=== PATIENT | female | born 1970 | race Hispanic/Latino ===

== ENCOUNTER 2024-02-28 17:00 | Emergency (ER) | payer BC ==
[2024-02-28] MEDS ORDERED: ONDANSETRON 4 MG/2 ML VIAL ONE (18:34)
[2024-02-28] MEDS ORDERED: NA CHLORIDE 0.9% 1,000 ML ONE (18:34)
[2024-02-28 18:38] LABS: Absolute Lymphocytes (CBC) 1.6 K/uL (0.7-4.9); Absolute Monocytes 0.3 K/uL (0.1-1.3); Absolute Neutrophil 3.4 K/uL (1.8-8.0); Basophils % 0.2 % (0-1.3); Eosinophils % 0.9 % (0-4.4); Hematocrit 44.2 % (36.0-45.0); Hemoglobin 14.7 g/dL (12.0-15.0); MCH 31.1 pg (27.0-35.0); MCHC 33.3 g/dL (32.0-36.0); MCV 93.3 fL (80-100); MPV 8.5 fL (7.6-11.3); Monocytes % 5.3 % (3.3-12.3); Neutrophils % 63.6 % (41.7-73.7); Platelets 291 thou/uL (152-406); RBC Red Blood Cell Count 4.74 M/uL (3.86-4.86); Red Cell Distribution Width 13.1 % (12.1-15.2)
[2024-02-28 19:45] LABS: Albumin 3.4 g/dL (3.4-5.0); Anion Gap 8.2 mEq/L (5.0-15.0); Bilirubin Total 0.5 mg/dL (0.2-1.0); Globulin 3.5 g/dL (2.3-3.5); Potassium 3.2 mEq/L (3.5-5.1); Protein, Total 6.9 g/dL (6.4-8.2)
[2024-02-28] MEDS ORDERED: FAMOTIDINE 20 MG/2 ML VIAL IV ONE (20:23)
--- NOTE | 2024-02-28 21:58 | RAD REPORT ---
EXAM DESCRIPTION: CTAbdomen Pelvis W Contrast - 02/28/2024 9:36 pm CLINICAL HISTORY: LOWER GI BLEED COMPARISON: No comparisons TECHNIQUE: CT of the abdomen and pelvis was performed. All CT scans are performed using dose optimization technique as appropriate and may include automated exposure control or mA/KV adjustment according to patient size. FINDINGS: Lower chest: Small hiatal hernia. Bilateral breast prostheses Liver: Low-density lesion right hepatic lobe in the dome has benign imaging features. Lesion at the i nferior right hepatic lobe is also likely benign. Biliary: Cholecystectomy. Mild extrahepatic biliary duct dilatation probably due to the postcholecyst ectomy state. Stomach: No significant focal abnormality. Duodenum: No significant focal abnormality. Pancreas: No significant abnormality. Spleen: No significant abnormality. Adrenal: No suspicious lesions. Kidney/ureter: No hydronephrosis. No renal calculi. 2.2 cm cystic structure along the upper pole the left kidney which is separate from the kidney. This likely represents a proteinaceous benign cyst. Retroperitoneum: No retroperitoneal adenopathy. Vascular: No aneurysm. Bowel: Normal appendix.. Peritoneum: No ascites or free air.Small fat containing umbilical hernia. Bladder: Grossly unremarkable. Reproductive: Hysterectomy. Bones: No acute fracture. Other: n/a IMPRESSION: No acute intra-abdominal or pelvic finding. No source of gastrointestinal bleeding ident ified. Incidental findings as noted above.
[2024-02-28 23:51] LABS: Hematocrit 38.7 % (36.0-45.0); Hemoglobin 13.2 g/dL (12.0-15.0); MCH 31.4 pg (27.0-35.0); MCV 92.3 fL (80-100); MPV 8.7 fL (7.6-11.3); Platelets 253 thou/uL (152-406); RBC Red Blood Cell Count 4.19 M/uL (3.86-4.86); Red Cell Distribution Width 12.8 % (12.1-15.2)
--- NOTE | 2024-02-29 00:21 | EDPHYS ---
Physician Documentation [facility] Name: Shana Guerra Age: 54 yrs Sex: Female : 1970 Arrival Date: 02/28/2024 Time: 17:00 Bed 15 Private MD: ED Physician Thanh Kenyon HPI: 02/27 17:16 This 54 yrs old Female presents to ER via Ambulatory with complaints of Rectal sb4 Bleeding. 17:16 The patient presents to the emergency department with bleeding from the rectum/anus, sb4 that is moderate. Onset: The symptoms/episode began/occurred 3 hour(s) ago. Context: the patient has a known history of hemorrhoids. Modifying factors: The symptoms are alleviated by nothing, The symptoms are aggravated by nothing. Associate signs and symptoms: Pertinent positives: abdominal pain in the left lower quadrant, nausea. The patient has experienced similar episodes in the past, a few times, but today's symptoms are worse. rectal bleeding began suddenly this afternoon, hasn't stopped. has history of internal hemorrhoids but can usually get them to stop bleeding with pressure. denies any BMs today that provoked this. she is not on blood thinners. does report history of duodenal ulcers. states blood is bright red. reports history of diverticulosis. 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 - Infectious Disease History:: Denies. - Social history:: Smoking status: Patient denies any tobacco usage or history of. ROS: 17:16 Constitutional: Negative for fever, chills, and weight loss, sb4 17:16 Abdomen/GI: Positive for abdominal pain, nausea, abdominal cramps, rectal bleeding, 17:16 All other systems are negative, Exam: 17:16 Constitutional: This is a well developed, well nourished patient who is awake, alert, sb4 and in no acute distress. Head/Face: Normocephalic, atraumatic. Eyes: Extra-ocular motions intact. Periorbital areas with no swelling, redness, or edema. ENT: Mucous membranes moist. Cardiovascular: Regular rate and rhythm with a normal S1 and S2. Respiratory: Lungs have equal breath sounds bilaterally, clear to auscultation and percussion. No rales, rhonchi or wheezes noted. No increased work of breathing, no retractions or nasal flaring. Abdomen/GI: Soft, non-tender, no distension. Skin: Warm, dry with normal turgor. Normal color with no rashes, no lesions, and no evidence of cellulitis. MS/ Extremity: Pulses equal, no cyanosis. Neurovascular intact. Full, normal range of motion. Neuro: Awake and alert, GCS 15, oriented to person, place, time, and situation. Motor strength 5/5 in all extremities. Sensory grossly intact. 20:18 Abdomen/GI: Rectal exam: is unremarkable, rectal tone normal, Stool: normal, sb4 hemorrhoid(s), external, internal, with associated bleeding, tenderness, Vital Signs: 17:08 BP 151 / 103; Pulse 107; Resp 16; Temp 98.1; Pulse Ox 100% ; Weight 65.77 kg; Height 5 bp ft. 0 in. ; 19:00 BP 128 / 83; Pulse 67; Resp 16; Pulse Ox 100% on R/A; pf1 20:00 BP 126 / 80; Pulse 89; Resp 16; Pulse Ox 100% on R/A; pf1 21:00 BP 126 / 87; Pulse 87; Resp 16; Pulse Ox 100% on R/A; Pain 5/10; pf1 22:00 BP 118 / 80; Pulse 77; Resp 16; Pulse Ox 100% on R/A; Pain 5/10; pf1 23:00 BP 113 / 78; Pulse 84; Resp 16; Pulse Ox 98% on R/A; Pain 5/10; pf1 02/28 00:00 BP 106 / 72; Pulse 85; Resp 16; Pulse Ox 100% on R/A; Pain 4/10; pf1 01:00 BP 115 / 81; Pulse 83; Resp 16; Pulse Ox 99% on R/A; Pain 5/10; pf1 02:00 BP 126 / 87; Pulse 76; Resp 16; Pulse Ox 97% on R/A; Pain 2/10; pf1 03:00 BP 111 / 73; Pulse 73; Resp 16; Temp 98; Pulse Ox 99% on R/A; Pain 2/10; pf1 04:00 BP 111 / 75; Pulse 80; Resp 16; Temp 98.1; Pulse Ox 97% on R/A; Pain 2/10; pf1 02/27 17:08 Body Mass Index 28.32 (65.77 kg, 152.4 cm) bp 21:00 Pain Scale: Adult pf1 22:00 Pain Scale: Adult pf1 23:00 Pain Scale: Adult pf1 02/28 00:00 Pain Scale: Adult pf1 01:00 Pain Scale: Adult pf1 02:00 Pain Scale: Adult pf1 03:00 Pain Scale: Adult pf1 04:00 Pain Scale: Adult pf1 MDM: 02/27 17:06 Patient medically screened. sb4 02/28 00:20 Data reviewed: vital signs, nurses notes, lab test result(s), radiologic studies. sb4 Counseling: I had a detailed discussion with the patient and/or guardian regarding the historical points, exam findings, and any diagnostic results supporting the discharge/admit diagnosis, lab results, radiology results, the need to transfer to another facility, [facility] does not immediately have the required specialist. 00:30 ED course: hemoglobin dropped from 14.7 to 13.2 in 5 hours. patient still having sb4 continued moderate rectal bleeding. will transfer for GI. patient requests [facility] as that is where she has established care with a GI. 03:01 Differential diagnosis: hemorrhoids, fissure, abscess, pilonidal cyst, condyloma. sp4 Consideration of Admission/Observation Escalation of care including admission/observation considered. Management of patient was discussed with the following: Hospitalist: richar YOON . 02/27 17:16 Order name: CBC with Diff; Complete Time: 18:42 sb4 02/27 17:16 Order name: CMP; Complete Time: 19:52 sb4 02/27 17:16 Order name: Lipase; Complete Time: 19:52 sb4 02/27 22:02 Order name: CBC w/o diff; Complete Time: 00:14 sb4 02/28 00:31 Order name: Type And Screen [facility] 02/27 19:57 Order name: CT Abd/Pelvis - IV Contrast Only; Complete Time: 22:01 [facility] 02/27 17:16 Order name: IV Saline Lock; Complete Time: 18:29 [facility] 02/27 17:16 Order name: Labs collected and sent; Complete Time: 18:29 [facility] 02/27 17:16 Order name: Misc. Order: gown; Complete Time: 18:29 [facility] 02/27 18:43 Order name: Labs - recollect needed: recollect green top; Complete Time: 19:14 bd Administered Medications: 02/27 18:38 Drug: Ondansetron IVP 4 mg IVP once; over 2 minutes Route: IVP; Infused Over: 2 mins; tl4 Site: right antecubital; 19:30 Follow up: Response: No adverse reaction; Marked relief of symptoms pf1 18:38 Drug: NS 0.9% IV 1000 ml IV at 1 bolus Per protocol; 1000 mL bolus Route: IV; Rate: 1 tl4 bolus; Site: right antecubital; Delivery: Primary tubing; 19:30 Follow up: Response: No adverse reaction; Marked relief of symptoms; IV Status: pf1 Completed infusion; IV Intake: 1000ml 20:27 Drug: Famotidine IVP 20 mg IVP once; dilute with 10 mL 0.9% NaCl; give over 2 minutes ha1 Route: IVP; Site: right antecubital; 20:45 Follow up: Response: No adverse reaction; Marked relief of symptoms pf1 02/28 01:10 Drug: Pantoprazole IVP 40 mg IVP once Route: IVP; Site: right antecubital; pf1 02:02 Follow up: Response: No adverse reaction; Marked relief of symptoms pf1 01:10 Drug: fentaNYL (PF) IVP 25 mcg IVP once Route: IVP; Site: right antecubital; pf1 02:01 Follow up: Response: No adverse reaction; Marked relief of symptoms; Pain is decreased pf1 01:10 Drug: Ondansetron IVP 4 mg IVP once; over 2 minutes Route: IVP; Site: right antecubital;pf1 02:01 Follow up: Response: No adverse reaction; Marked relief of symptoms pf1 Disposition: 02/27 18:00 I was immediately available on-site in the Emergency Department for consultation in the ms3 care of the patient. Disposition Summary: 02/29/24 00:20 Transfer Ordered Notes: Transfer Location: [facility] sb4 Reason: Higher level of care sb4 Condition: Fair sb4 Problem: new sb4 Symptoms: are unchanged sb4 Accepting Physician: Dr. Pruitt(02/29/24 04:40) pf1 Diagnosis - GI Bleed/ Gastrointestinal hemorrhage, unspecified sb4 Discharge Instructions: - Discharge Summary Sheet sb4 - Hemorrhoids, [id number] sb4 Forms: - Medication Reconciliation Form sb4 - SBAR form sb4 Signatures: Dispatcher [employer] EDMS Kim Bee bd Ariel Mckeon, RN RN bp Gamal Whipple DO DO ms3 Eli Cummings RN RN ha1 Angela Myles, PA-C PA-C sb4 Awilda Grigsby RN RN pf1 Tahnh Kenyon MD MD sp4 Melo Byrnes RN RN tl4 Corrections: (The following items were deleted from the chart) 17:16 17:16 CBC+H.LAB.BRZ ordered. EDMS EDMS 17:16 17:16 COMPREHENSIVE METABOLIC PANEL+C.LAB.BRZ ordered. EDMS EDMS 17:16 17:16 LIPASE+C.LAB.BRZ ordered. EDDE EDMS 22:02 22:02 CBC without Diff+H.LAB.BRZ ordered. EDDE EDMS 02/28 00:32 00:32 TYPE AND SCREEN+BB.LAB.BRZ ordered. EDDE EDMS 02:29 00:30 ED course: hemoglobin dropped from 14.7 in 13.2 in 5 hours. patient still having sb4 continual rectal bleeding. will transfer for GI. patient requests [facility] as that is where she has established care with a GI. sb4 04:40 00:20 Dr. Pruitt sb4 pf1
--- NOTE | 2024-02-29 00:21 | ER ---
Nurse's Notes [facility] Name: Shana Guerra Age: 54 yrs Sex: Female : 1970 Arrival Date: 02/28/2024 Time: 17:00 Bed 15 Private MD: Diagnosis: GI Bleed/ Gastrointestinal hemorrhage, unspecified Presentation: 02/27 17:08 Chief complaint: Patient states: COPIOUS RECTAL BLEEDING SINCE 1430. Coronavirus bp screen: At this time, the client does not indicate any symptoms associated with coronavirus-19. Ebola Screen: No symptoms or risks identified at this time. Initial Sepsis Screen: Does the patient meet any 2 criteria? HR > 90 bpm. No. Patient's initial sepsis screen is negative. Does the patient have a suspected source of infection? No. Patient's initial sepsis screen is negative. Risk Assessment: Do you want to hurt yourself or someone else? Patient reports no desire to harm self or others. Onset of symptoms was February 28, 2024 at 14:30. 17:08 Method Of Arrival: Ambulatory bp 17:08 Acuity: FRAN 3 bp Triage Assessment: 17:10 General: Appears in no apparent distress. Behavior is calm, cooperative, appropriate bp for age. Pain: Denies pain. GI: Reports rectal bleeding, bloody stool. INSTRUMENT TESTER: 17:10 LMP N/A - , Not bp Historical: - Allergies: 17:10 No Known Allergies; bp - Home Meds: 17:10 metoprolol tartrate 50 mg Oral tablet daily [Active]; atorvastatin 10 mg oral tablet 1 bp tab daily [Active]; amlodipine 10 mg tablet 1 tab daily [Active]; Lasix 20 mg Oral tablet [Active]; phentermine 37.5 mg oral capsule [Active]; - PMHx: 17:10 Hypertensive disorder; bp - Immunization history:: Adult Immunizations up to date. - Infectious Disease History:: Denies. - Social history:: Smoking status: Patient denies any tobacco usage or history of. Screenin:30 [facility] ED Fall Risk Assessment (Adult) History of falling in the last 3 months, tl4 including since admission No falls in past 3 months (0 pts) Confusion or Disorientation No (0 pts) Intoxicated or Sedated No (0 pts) Impaired Gait No (0 pts) Mobility Assist Device Used No (0 pt) Altered Elimination No (0 pt) Score/Fall Risk Level 0 - 2 = Low Risk Oriented to surroundings, Maintained a safe environment, Educated pt \T\ family on fall prevention, incl call for assistance when getting out of bed, Assessed \T\ reinforced patient's understanding of fall precautions. Abuse screen: Denies threats or abuse. Denies injuries from another. Nutritional screening: No deficits noted. Tuberculosis screening: No symptoms or risk factors identified. Assessment: 18:30 General: Appears in no apparent distress. Behavior is calm, cooperative. Pain: tl4 Complains of pain in left lower quadrant. Neuro: Level of Consciousness is awake, alert, obeys commands, Oriented to person, place, time, situation, Moves all extremities. Full function Gait is steady, Speech is normal. Neuro: Reports dizziness. Cardiovascular: Capillary refill < 3 seconds Patient's skin is warm and dry. Respiratory: Airway is patent Respiratory effort is even, unlabored, Respiratory pattern is regular, symmetrical. GI: Reports lower abdominal pain, rectal bleeding. : No signs and/or symptoms were reported regarding the genitourinary system. EENT: No signs and/or symptoms were reported regarding the EENT system. Derm: No signs and/or symptoms reported regarding the dermatologic system. Musculoskeletal: No signs and/or symptoms reported regarding the musculoskeletal system. 19:00 General: Appears in no apparent distress. comfortable, well groomed, well developed, pf1 Behavior is calm, cooperative, appropriate for age, quiet. 19:00 Pain: Complains of pain in left lower quadrant. Neuro: No deficits noted. Level of pf1 Consciousness is awake, alert, obeys commands, Oriented to person, place, time, situation, Reports dizziness, Patient denies any dizziness at this time. Cardiovascular: Capillary refill < 3 seconds Patient's skin is warm and dry. Respiratory: No deficits noted. Airway is patent Respiratory effort is even, unlabored, Respiratory pattern is regular, symmetrical, Breath sounds are clear bilaterally. GI: Reports lower abdominal pain, rectal bleeding, hemorrhoids. : No deficits noted. No signs and/or symptoms were reported regarding the genitourinary system. EENT: No deficits noted. No signs and/or symptoms were reported regarding the EENT system. Derm: No deficits noted. No signs and/or symptoms reported regarding the dermatologic system. Musculoskeletal: No deficits noted. No signs and/or symptoms reported regarding the musculoskeletal system. 20:00 Reassessment: Patient appears in no apparent distress at this time. Patient and/or pf1 family updated on plan of care and expected duration. Pain level reassessed. Patient is alert, oriented x 3, equal unlabored respirations, skin warm/dry/pink. Patient states symptoms have improved. 21:00 Reassessment: Patient appears in no apparent distress at this time. Patient and/or pf1 family updated on plan of care and expected duration. Pain level reassessed. Patient is alert, oriented x 3, equal unlabored respirations, skin warm/dry/pink. Patient states symptoms have not improved. Patient stated had more bleeding more rectum. 22:00 Reassessment: Patient appears in no apparent distress at this time. Patient and/or pf1 family updated on plan of care and expected duration. Pain level reassessed. Patient is alert, oriented x 3, equal unlabored respirations, skin warm/dry/pink. Patient states symptoms have not improved. Patient stated had more bleeding from rectum. 22:00 GI: Reports lower abdominal pain, upper abdominal pain, rectal bleeding, hemorrhoids. pf1 23:00 Reassessment: Patient appears in no apparent distress at this time. Patient and/or pf1 family updated on plan of care and expected duration. Pain level reassessed. Patient is alert, oriented x 3, equal unlabored respirations, skin warm/dry/pink. Patient states symptoms have not improved. 23:00 GI: Reports lower abdominal pain, upper abdominal pain, rectal bleeding. pf1 02/28 00:00 Reassessment: Patient appears in no apparent distress at this time. Patient and/or pf1 family updated on plan of care and expected duration. Pain level reassessed. Patient is alert, oriented x 3, equal unlabored respirations, skin warm/dry/pink. 01:00 Reassessment: Patient appears in no apparent distress at this time. Patient and/or pf1 family updated on plan of care and expected duration. Pain level reassessed. Patient is alert, oriented x 3, equal unlabored respirations, skin warm/dry/pink. Patient pending transfer. 02:00 Reassessment: Patient appears in no apparent distress at this time. Patient and/or pf1 family updated on plan of care and expected duration. Pain level reassessed. Patient is alert, oriented x 3, equal unlabored respirations, skin warm/dry/pink. Patient pending transfer. 03:00 Reassessment: Patient appears in no apparent distress at this time. Patient and/or pf1 family updated on plan of care and expected duration. Pain level reassessed. Patient is alert, oriented x 3, equal unlabored respirations, skin warm/dry/pink. Patient states symptoms have improved. 03:49 Reassessment: Patient appears in no apparent distress at this time. Patient and/or pf1 family updated on plan of care and expected duration. Pain level reassessed. Patient is alert, oriented x 3, equal unlabored respirations, skin warm/dry/pink. patient updated on transfer process. 04:04 Reassessment: Patient report given to Jose Blackburn RN at [facility]. [facility] 04:34 Reassessment: Patient report given to Kriss with [facility]. Pattient being pf1 transferred to [facility] at this time. Vital Signs: 02/27 17:08 BP 151 / 103; Pulse 107; Resp 16; Temp 98.1; Pulse Ox 100% ; Weight 65.77 kg; Height 5 bp ft. 0 in. ; 19:00 BP 128 / 83; Pulse 67; Resp 16; Pulse Ox 100% on R/A; pf1 20:00 BP 126 / 80; Pulse 89; Resp 16; Pulse Ox 100% on R/A; pf1 21:00 BP 126 / 87; Pulse 87; Resp 16; Pulse Ox 100% on R/A; Pain 5/10; pf1 22:00 BP 118 / 80; Pulse 77; Resp 16; Pulse Ox 100% on R/A; Pain 5/10; pf1 23:00 BP 113 / 78; Pulse 84; Resp 16; Pulse Ox 98% on R/A; Pain 5/10; pf1 02/28 00:00 BP 106 / 72; Pulse 85; Resp 16; Pulse Ox 100% on R/A; Pain 4/10; pf1 01:00 BP 115 / 81; Pulse 83; Resp 16; Pulse Ox 99% on R/A; Pain 5/10; pf1 02:00 BP 126 / 87; Pulse 76; Resp 16; Pulse Ox 97% on R/A; Pain 2/10; pf1 03:00 BP 111 / 73; Pulse 73; Resp 16; Temp 98; Pulse Ox 99% on R/A; Pain 2/10; pf1 04:00 BP 111 / 75; Pulse 80; Resp 16; Temp 98.1; Pulse Ox 97% on R/A; Pain 2/10; pf1 02/27 17:08 Body Mass Index 28.32 (65.77 kg, 152.4 cm) bp 21:00 Pain Scale: Adult pf1 22:00 Pain Scale: Adult pf1 23:00 Pain Scale: Adult pf1 02/28 00:00 Pain Scale: Adult pf1 01:00 Pain Scale: Adult pf1 02:00 Pain Scale: Adult pf1 03:00 Pain Scale: Adult pf1 04:00 Pain Scale: Adult pf1 ED Course: 02/27 17:02 Patient arrived in ED. mr 17:02 Angela Myles PA-C is PHCP. sb4 17:03 Gamal Whipple DO is Attending Physician. sb4 17:10 Triage completed. bp 17:10 Arm band placed on. bp 18:20 Melo Byrnes, RN is Primary Nurse. tl4 18:29 CBC with Diff Sent. tl4 18:29 CMP Sent. tl4 18:29 Lipase Sent. tl4 18:29 No provider procedures requiring assistance completed. Initial lab(s) drawn, by me, tl4 sent to lab. Inserted saline lock: 22 gauge in right antecubital area, using aseptic technique. Blood collected. 18:31 Patient has correct armband on for positive identification. Placed in gown. Bed in low tl4 position. Call light in reach. Side rails up X 1. Adult w/ patient. Provided Education on: ED process, call mccurdy. Client placed on continuous cardiac and pulse oximetry monitoring. NIBP monitoring applied. Door closed. Noise minimized. Lights dimmed. Moved to private room. Warm blanket given. 19:10 Lab(s) recollected, by me, sent to lab. pf1 21:38 CT Abd/Pelvis - IV Contrast Only In Process Unspecified. EDMS 23:26 CBC w/o diff Sent. tl4 02/28 01:04 Initial lab(s) drawn, by me, sent to lab. pf1 01:06 Type And Screen Sent. pf1 01:31 [facility] called to initiate transfer, on hold for 40 Minutes, ty not answered and disconnected. 02:09 Re-contacted [facility] and was on hold for 4 minutes, spoke with XXXXXX. ty 02:59 Attending Physician role handed off by Gamal Whipple DO sp4 02:59 Thanh Kenyon MD is Attending Physician. sp4 03:58 [facility]TA 30 minutes. ty 04:37 Patient transferred, IV remains in place. pf1 Administered Medications: 02/27 18:38 Drug: Ondansetron IVP 4 mg IVP once; over 2 minutes Route: IVP; Infused Over: 2 mins; tl4 Site: right antecubital; 19:30 Follow up: Response: No adverse reaction; Marked relief of symptoms pf1 18:38 Drug: NS 0.9% IV 1000 ml IV at 1 bolus Per protocol; 1000 mL bolus Route: IV; Rate: 1 tl4 bolus; Site: right antecubital; Delivery: Primary tubing; 19:30 Follow up: Response: No adverse reaction; Marked relief of symptoms; IV Status: pf1 Completed infusion; IV Intake: 1000ml 20:27 Drug: Famotidine IVP 20 mg IVP once; dilute with 10 mL 0.9% NaCl; give over 2 minutes ha1 Route: IVP; Site: right antecubital; 20:45 Follow up: Response: No adverse reaction; Marked relief of symptoms pf1 02/28 01:10 Drug: Pantoprazole IVP 40 mg IVP once Route: IVP; Site: right antecubital; pf1 02:02 Follow up: Response: No adverse reaction; Marked relief of symptoms pf1 01:10 Drug: fentaNYL (PF) IVP 25 mcg IVP once Route: IVP; Site: right antecubital; pf1 02:01 Follow up: Response: No adverse reaction; Marked relief of symptoms; Pain is decreased pf1 01:10 Drug: Ondansetron IVP 4 mg IVP once; over 2 minutes Route: IVP; Site: right antecubital;pf1 02:01 Follow up: Response: No adverse reaction; Marked relief of symptoms pf1 Medication: 02/27 18:30 VIS not applicable for this client. tl4 Intake: 19:30 IV: 1000ml; Total: 1000ml. pf1 Outcome: 02/28 00:20 ER care complete, transfer ordered by . sb4 04:37 Transferred by ground EMS to [facility], Transfer form completed. X-rays sent pf1 w/ patient. 04:37 Condition: stable 04:37 Instructed on the need for transfer, Demonstrated understanding of instructions, 04:40 Patient left the ED. pf1 Signatures: Dispatcher [employer] EDFL Justina Flower, Reg Reg mr Ariel Mckeon, RN RN Eli Ramos RN RN ha1 Angela Myles, HITESH moran4 Awilda Grigsby RN RN pf1 Thanh Kenyon MD MD sp4 Melo Byrnes RN RN tl4 Hussein Bloom ty Corrections: (The following items were deleted from the chart) 01:59 05/13 21:00 Reassessment: Patient appears in no apparent distress at this time. Patient pf1 and/or family updated on plan of care and expected duration. Pain level reassessed. Patient is alert, oriented x 3, equal unlabored respirations, skin warm/dry/pink. Patient states symptoms have improved. pf1 02/28 02:17 02:09 [facility] ty ty
[2024-02-29] MEDS ORDERED: PANTOPRAZOLE 40 MG INJ ONE (01:10)
[2024-02-29] MEDS ORDERED: ONDANSETRON 4 MG/2 ML VIAL ONE (01:10)
[2024-02-29] MEDS ORDERED: FENTANYL CITR 100 MCG/2 ML ONE (01:11)
[2024-02-29 04:53] VITALS: TEMP 98.1
[2024-02-29 05:12] VITALS: BP 111/75; O2SAT 97
== END 2024-02-29 04:40 | disposition short-term general hospital (02) ==
LOC: ER 17:00
DX: K92.2 Gastrointestinal hemorrhage, unspecified (principal)
CPT/HCPCS: 85025; 36415; 86900; 86850; 86901; 85027; 83690; 80053; 74177; Q9967; C9113; J3010; J2405 ×2; J7030